=== PATIENT | female | born 1985 | race Hispanic/Latino ===

== ENCOUNTER → 2020-04-02 | Outpatient (CLI) | payer BC ==
--- NOTE | 2020-04-02 11:31 | Diagnostic Imaging Report ---
MRI SPINE LUMBAR WO HISTORY: Low back pain COMPARISON: None. TECHNIQUE: Sagittal T1, sagittal T2, sagittal STIR, axial T2, coronal T2, and axial proton density weighted images of the lumbar spine were obtained without contrast. DISCUSSION: Number of non-rib bearing lumbar vertebral bodies: 5. Alignment: Normal lordosis. No scoliosis. Vertebrae: No fractures, infection or neoplasm. Conus medullaris: Normal, ends at L2. Cauda equina: No masses or arachnoiditis. Small left perineural cyst at S1-S2 is noted. Posterior paraspinal muscles: Well preserved. No signal abnormalities. Soft tissues: Bilateral renal pelviectasis versus extrarenal pelves. Minimal disc degeneration is most prominent at L1-L2. T12-L1: Patent canal and foramina. L1-L2: Disc bulge with small right subarticular disc protrusion that slightly effaces the right lateral recess and is in close proximity to the descending right L2 nerve root. No significant central canal or foraminal stenosis. L2-L3: Patent canal and foramina. L3-L4: Patent canal and foramina. L4-L5: Patent canal and foramina. L5-S1: Patent canal and foramina. IMPRESSION: 1. Minimal lumbar disc degeneration, most prominent at L1-L2. 2. Small right L1-L2 subarticular disc protrusion effaces the right lateral recess and is in close proximity to the descending right L2 nerve. 3. No significant central canal or foraminal stenosis. Signed by: Dr. Calvin Toure M.D. on 04/02/2020 11:28 AM
--- NOTE | 2020-04-02 11:40 | Diagnostic Imaging Report ---
TECHNIQUE: Magnetic resonance imaging of the PELVIS was performed WITHOUT injected contrast using standard departmental protocols. HISTORY: Low back pain COMPARISON: None. FINDINGS: Bone and bone marrow: No fracture or osteonecrosis. Joint spaces: Hip joint spaces preserved. No visualized displaced labral tear. Sacroiliac joint space erosive change with subchondral sclerosis and edema. Edema at the pubic symphysis. Soft tissues: The visualized tendons appear intact. IMPRESSION: Bilateral sacroiliitis Pubic symphysis edema Signed by: Dr. Ochoa Tipton M.D. on 04/02/2020 11:36 AM
== END ==
LOC: MRI 08:31
PROVIDERS: ATTEND Specialist
DX: M54.5 Low back pain (principal); R10.2 Pelvic and perineal pain
CPT/HCPCS: 72148; 72195